=== PATIENT | female | born 1980 | race Caucasian/White ===

== ENCOUNTER 2017-10-07 21:05 | Outpatient (CLI) | payer SELFPAY ==
[~2017-10-07] VITALS: Ht 152.4 cm; Wt 65.5 kg
[2017-10-07 09:15] VITALS: BP 114/69; PULSE 81
[2017-10-07 21:15] VITALS: BP 114/69; PULSE 81; TEMP 98
[2017-10-07 21:45] VITALS: BP 107/60; PULSE 77
[2017-10-07 22:01] LABS: BASO % 0.3 % (0.0-2.0); EOS # 0.1 (0.0-0.7); EOS % 0.8 % (0-4.0); GRAN # 7.7 (1.4-6.5); GRAN % 75.6 % (42.2-75.2); HEMOGLOBIN 11.2 g/dl (12.5-16.0); LYMPH # 1.7 (1.2-3.4); LYMPH % 16.4 % (20.0-51.0); MEAN CELL VOLUME 98 fl (80.0-100.0); MEAN CORPUSCULAR HEMOGLOBIN 34 pg (27.0-31.0); MEAN CORPUSCULAR HGB CONC 35 g/dl (33.0-37.0); MEAN PLATELET VOLUME 11.1 fl (7.4-10.4); MONO # 0.6 (0.1-0.6); MONO % 6.3 % (1.7-9.3); PLATELET COUNT 169 K/mm3 (130-400); RED BLOOD COUNT 3.28 M/mm3 (4.10-5.30); REDCELL DISTRIBUTION WIDTH-CV 12.6 % (11.5-14.5)
[2017-10-07 22:10] LABS: ALBUMIN 3.2 gm/dL (3.5-5.0); BILIRUBIN,TOTAL 0.5 mg/dL (0.0-1.0); CALCIUM 8.4 mg/dL (8.4-10.2); CREATININE, serum 0.37 mg/dL (0.52-1.25); POTASSIUM 3.9 mmol/L (3.4-5.0); TOTAL PROTEIN 6.9 gm/dL (6.4-8.2)
[2017-10-07 22:30] VITALS: BP 114/69; PULSE 81; TEMP 98
[2017-10-07 22:42] LABS: COLLECTION METHOD CLEAN CATCH
[2017-10-07 22:53] LABS: PH 7 (5-8); SQUAMOUS EPITHELIAL 0-2 /hpf; URINE APPEARANCE Clear; URINE BACTERIA Rare /hpf; URINE BILIRUBIN Negative (NEGATIVE); URINE BLOOD Negative (NEGATIVE); URINE COLOR Straw; URINE GLUCOSE Negative (NEGATIVE); URINE KETONE Negative (NEGATIVE); URINE LEUKOCYTE ESTERASE Negative (NEGATIVE); URINE NITRATE Negative (NEGATIVE); URINE PROTEIN(semi-quant) Negative (NEGATIVE); URINE RBC 0-2 /hpf; URINE UROBILINOGEN Negative (NEGATIVE)
[2017-10-07] MEDS ORDERED: PRENATAL1 TA7 PO (22:58)
[2017-10-07 23:00] VITALS: BP 114/60; PULSE 80
[2017-10-08] VITALS: BP 101/60; PULSE 69
== END 2017-10-08 01:30 | disposition short-term general hospital (02) ==
LOC: COL.ER 21:05 → LDRO 21:05 → EDSTATUS 21:08 → LDRO 10-08 01:30
PROVIDERS: Obstetrics & Gynecology
DX: O26.853 Spotting complicating pregnancy, third trimester (principal); O62.9 Abnormality of forces of labor, unspecified; O99.413 Diseases of the circulatory system complicating pregnancy, third trimester; R00.2 Palpitations; Z3A.31 31 weeks gestation of pregnancy
CPT/HCPCS: J0290; J0702; J7120

== ENCOUNTER 2017-10-17 15:40 | Emergency (ER) | payer SELFPAY ==
[~2017-10-17] VITALS: Ht 152.4 cm; Wt 62.1 kg
[~2017-10-17 15:40] MED LIST: PRENATAL1 TA7 PO
[2017-10-17 15:54] VITALS: BP 101/76; PULSE 85; TEMP 98.5
[2017-10-17 17:50] LABS: BASO % 0.5 % (0.0-2.0); EOS # 0.2 (0.0-0.7); EOS % 2.5 % (0-4.0); GRAN # 4.5 (1.4-6.5); GRAN % 57.7 % (42.2-75.2); LYMPH # 2.4 (1.2-3.4); LYMPH % 31.4 % (20.0-51.0); MEAN CELL VOLUME 99 fl (80.0-100.0); MEAN CORPUSCULAR HGB CONC 34 g/dl (33.0-37.0); MEAN PLATELET VOLUME 10.1 fl (7.4-10.4); MONO # 0.6 (0.1-0.6); MONO % 7.4 % (1.7-9.3); PLATELET COUNT 206 K/mm3 (130-400); RED BLOOD COUNT 2.82 M/mm3 (4.10-5.30); REDCELL DISTRIBUTION WIDTH-CV 12.4 % (11.5-14.5)
[2017-10-17 17:51] LABS: HEMATOCRIT 27.9 % (37.0-47.0); HEMOGLOBIN 9.4 g/dl (12.5-16.0); MEAN CORPUSCULAR HEMOGLOBIN 33 pg (27.0-31.0)
[2017-10-17 18:00] LABS: ALBUMIN 3.1 gm/dL (3.5-5.0); BILIRUBIN,TOTAL 0.1 mg/dL (0.0-1.0); CALCIUM 8.6 mg/dL (8.4-10.2); CREATININE, serum 0.63 mg/dL (0.52-1.25); POTASSIUM 3.6 mmol/L (3.4-5.0); TOTAL PROTEIN 6.6 gm/dL (6.4-8.2)
[2017-10-17 18:31] LABS: THYROID STIMULATING HORMONE 1.67 uIU/mL (0.465-4.680)
[2017-10-17] MEDS ORDERED: ROXICODONE 55 MG/TAB PO (18:49)
== END 2017-10-17 19:10 | disposition home or self-care (01) ==
LOC: COL.ER 15:40
PROVIDERS: Nurse Practitioner
DX: R00.2 Palpitations (principal); D64.9 Anemia, unspecified

== ENCOUNTER 2019-07-01 16:24 | Emergency (ER) | payer SELFPAY ==
[~2019-07-01] VITALS: Wt 58.0 kg
[~2019-07-01 16:24] MED LIST changes: +ROXICODONE 55 MG/TAB PO
[2019-07-01] MEDS ORDERED: VALTREX1 GM PO (17:57)
[2019-07-01 18:16] VITALS: BP 132/78; PULSE 78; TEMP 97.8
== END 2019-07-01 18:06 | disposition home or self-care (01) ==
LOC: COL.ER 16:24
DX: B02.9 Zoster without complications (principal); Z86.69 Personal history of other diseases of the nervous system and sense organs

== ENCOUNTER 2021-01-05 08:56 | Emergency (ER) | payer SELFPAY ==
[~2021-01-05 08:56] MED LIST changes: +VALTREX1 GM PO
[2021-01-05 09:40] VITALS: BP 111/53; TEMP 98
[2021-01-05 10:08] VITALS: PULSE 78
== END 2021-01-05 10:08 | disposition home or self-care (01) ==
LOC: EDBD 08:56 → COL.ER 08:56
DX: H69.93 Unspecified Eustachian tube disorder, bilateral (principal)

== ENCOUNTER 2024-03-30 23:39 | Emergency (ER) | payer SELFPAY ==
[~2024-03-30] VITALS: Ht 170.2 cm; Wt 68.2 kg
[2024-03-30 23:53] VITALS: TEMP 97.4
[2024-03-31] MEDS ORDERED: TESSALON P100 MG/CAP PO (00:11)
[2024-03-31] MEDS ORDERED: Benzonatate 100 MG CAP PO ONE (00:15)
[2024-03-31] MEDS ORDERED: dexAMETHasone 10 MG/ML VIAL PO ONE (00:15)
[2024-03-31 00:25] VITALS: BP 128/80; PULSE 74
== END 2024-03-31 00:25 | disposition home or self-care (01) ==
LOC: COL.ER 23:39
DX: J06.9 Acute upper respiratory infection, unspecified (principal); J02.9 Acute pharyngitis, unspecified
CPT/HCPCS: J1100